=== PATIENT | male | born 1940 | race African-American/Black ===

== ENCOUNTER → 2016-09-23 | Outpatient (CLI) | payer OTHER ==
[~2016-09-23] MED LIST: ATORVASTATIN CA80 MG PO; CARB15DR3 OP; CHLO12TA PO; FLUT50DI IH; LOSA25TA4 PO; MONT10TA6 PO; OXYB5SYR2 PO; POLY2500 MC; RANI150C PO; REGADENOSON 0.4 MG/5 ML DISP.SYRIN. IV ONE; TADA5TAB PO; TERA5CAP3 PO; TOLN1POW MC; [UNRECOGNIZED DRUG - CODE] PO; [UNRECOGNIZED DRUG - CODE] PO
--- NOTE | 2016-09-23 14:09 | RAD ---
APPROVED REPORT Test Type: Pharmacological Stress Nurse/Tech: Jeniffer Tavares R.N. Test Indications: PVCs Cardiac History: htn Medications: see ehr Medical History: see ehr Resting ECG: SR with bigmeiny Resting Heart Rate: 77 bpm Resting Blood Pressure: 160/69mmHg Pretest Chest Pain: No chest pain Nurse/Tech Notes lungs cta, heart tones regular Consent: The procedure was explained to the patient in lay terms. Informed consent was witnessed. José Miguel eout was entered into [employer]. History and Stress Test performed by Jeniffer Tavares R.N. Pharm. Details Pharmacologic stress testing was performed using 0.4mg per 5ml of regadenoson given intravenously ove r 7-10 seconds. Stress Symptoms No chest pain or symptoms. POST EXERCISE Reason for Termination: Infusion complete Target HR: No Max HR: 106 bpm Max Blood Pressure: 158/67mmHg Chest Pain: No. Arrhythmia: Yes. Pt in and out of bigeminiy ST Change: No. INTERPRETATION Stress EKG Conclusion: No evidence of stress induced EKG changes. Imaging Protocol IMAGE PROTOCOL: Rest Tc-99m/stress Tc-99m 1 day Rest: Stress: Viability: Radiopharm.Tc99m YhqlxwechZi12m Sestamibi Dose10.6mCi 34mCi Duration 15min. 10min. Img Date 09/23/2016 09/23/2016 Inj-Img Dosm75gmr. 60min. Rest Admin Site:IV - Right AntecubitalAdministrator:RT Rm (R)(N) Stress Admin Site: IV - Right AntecubitalAdministrator: RT Rm (R)(N) STRESS DATA End Diast. Vol.105.0mlAv. Heart Rate80.0bpm End Syst. Vol.51.0mlCO Index BSA0.0L/min Myocardial Zymh470.0gEject. Sbcwnoca43.0% Stress Rates Pk. Fill Rate2.68EDV/secLVtime Pk. Fill 243.58msec Pk. Empty Rate3.55ESV/secLVtime Pk. Xefvq497.52msec 08/20 Pk. Fill0.42EDV/sec Stress Scores Regional WT1.00Summed WT16.00 Regional WM0.00Summed WM6.00 LV Perfusion Normal myocardial perfusion Wall Motion Mild global hypokinesis likely related to inadequate gating in the setting of PVC's. LV Perf. Quant 17 Seg. SSS0.00 17 Seg. SRS0.00 17 Seg. SDS0.00 Stress Defect Extent (% LAD)0.00Rest Defect Extent (% LAD)0.00Rev. Defect Extent (% LAD)0.00 Stress Defect Extent (% LCX) 0.00Rest Defect Extent (% LCX)0.00Rev. Defect Extent (% LCX)0.00 Stress Defect Extent (% RCA)0.00Rest Defect Extent (% RCA)0.00Rev. Defect Extent (% RCA)0.00 Stress Defect Extent (% URIEL)0.00Rest Defect Extent (% URIEL)0.00Rev. Defect Extent (% URIEL)0.00 Other Information Quality:Average Risk Assessment: Low Risk Conclusion 1. No evidence of stress-induced EKG changes. Baseline EKG with bigeminal pattern. 2. Normal myocardial perfusion at stress and rest. 3. Low-normal LV systolic function likely secondary to inadequate gating in the setting of bigeminal rhythm. Ejection fraction is 50%. 4. Low risk stress test.
== END | disposition home or self-care (01) ==
LOC: NM 08:25
PROVIDERS: ATTEND Internal Medicine Cardiovascular Disease
DX: R07.9 Chest pain, unspecified (principal)
CPT/HCPCS: 78452; 93017; 96374; 96375; 96376; A9500; J2785

== ENCOUNTER 2017-10-27 21:23 | Emergency (ER) | payer OTHER, MEDICARE ==
[2017-10-27] MEDS: HYDROcodone/APAP 5/325MG 1 TAB TABLET PO (22:25)
== END 2017-10-27 23:01 | disposition home or self-care (01) ==
LOC: ER 21:23
DX: R07.89 Other chest pain (principal); R91.1 Solitary pulmonary nodule; I10 Essential (primary) hypertension; V43.52XA Car driver injured in collision with other type car in traffic accident, initial encounter; Y93.I9 Activity, other involving external motion; Y92.410 Unspecified street and highway as the place of occurrence of the external cause; Y99.8 Other external cause status
CPT/HCPCS: 71046; 93005; 99284-25